=== PATIENT | female | born 1945 | race Caucasian/White ===

== ENCOUNTER 2019-05-20 12:39 | Day surgery (SDC) | payer OTHER ==
[~2019-05-20] VITALS: Ht 167.6 cm; Wt 110.8 kg
[~2019-05-20 12:39] MED LIST: AMIT50 PO; AMLO10 PO; CALCIUM CIT 311 EACH PO; GLUCOSAMINE CO1 EACH PO; LUTEIN20 MG PO; MEGA MULTI FOR1 EACH PO; NIGHTTIME SLEEP25 MG PO; Red Yeast Rice600 MG PO; VITAMIN B122500 MCG PO; Vitamin D2000 UNIT PO
--- NOTE | 2019-05-20 13:35 | NUR ---
Ambulatory in Day Surgery History, Chart, Medications and Allergies reviewed before start of procedure.Lungs clear T/O to Auscultation. Patient confirms NPO status and agrees with scheduled surgery. Patient reports completing Chlorhexadine shower X2 prior to admission to hospital.Surgical site prepped with 2% Chlorhexidine cloth wipe.
--- NOTE | 2019-05-20 18:25 | NUR ---
1814-PT HAVING RUNS OF [facility] EVERY THIRD BEAT. DR. CLARK NOTIFIED AND PT TO BE PUT ON TELE ON SURG FLOOR AND HAVE A HOSPITALIST CONSULT.
--- NOTE | 2019-05-20 18:53 | NUR ---
1824-MESSAGE LEFT FOR HOSPITALIST TO CONSULT.
[2019-05-20 22:28] LABS: Albumin, Blood 3.1 g/dL (3.4-5.0); Anion Gap 7 mmol/L (6-16); Blood Urea Nitrogen 15 mg/dL (8-24); CO2, Blood 25 mmol/L (21-32); Calcium, Blood 8.2 mg/dL (8.5-10.1); Chloride, Blood 109 mmol/L (98-108); Creatinine, Blood 0.84 mg/dL (0.40-1.00); Glomerular Filtration Rate >60 (60-); Glucose, Blood 185 mg/dL (70-99); Phosphorus, Blood 3.4 mg/dL (2.5-4.9); Potassium, Blood 3.1 mmol/L (3.5-5.5); Sodium, Blood 141 mmol/L (136-145)
[2019-05-21 04:08] LABS: BASOPHILS PERCENT AUTO 0 % (0-2); EOSINOPHILS PERCENT AUTO 0 % (0-6); Hematocrit 33.2 % (33.0-51.0); Hemoglobin 11.1 g/dL (11.5-16.0); IMMATURE GRAN ABSOLUTE AUTO 0.04 K/mm3 (0.00-0.10); IMMATURE GRAN PERCENT AUTO 0 % (0-1); LYMPHOCYTES ABSOLUTE AUTO 0.67 K/mm3 (0.84-5.20); LYMPHOCYTES PERCENT AUTO 7 % (21-46); MONOCYTES ABSOLUTE AUTO 0.43 K/mm3 (0.16-1.47); MONOCYTES PERCENT AUTO 5 % (4-13); Mean Corpuscular HGB 29.3 pg (26.0-34.0); Mean Corpuscular HGB Conc 33.4 g/dL (31.5-36.5); Mean Corpuscular Volume 88 fL (80-100); Mean Platelet Volume 10.1 fL (9.1-12.4); NEUTROPHILS ABSOLUTE AUTO 8.36 K/mm3 (1.96-9.15); NEUTROPHILS PERCENT AUTO 88 % (41-73); Platelet Count 285 K/mm3 (150-400); RDW Coefficient Variation 14.6 % (11.7-14.2); RDW Standard Deviation 46.7 fL (35.1-46.3); Red Blood Cell Count 3.79 M/mm3 (3.80-5.20)
--- NOTE | 2019-05-21 04:25 | NUR ---
SHIFT SUMMARY POD 1 L TKA [id number], VSS. SURGICAL DRESSING CDI. PT UP AND AMBULATING FWW, GB. TOLERATING WELL MEDICATED PER EMAR. PT MEDICATED PER EMAR FOR PAIN. PT VOIDING. TOLERATING PO WELL. PLAN TO WORK WITH THERAPY TODAY.
[2019-05-21 04:27] LABS: Anion Gap 7 mmol/L (6-16); Blood Urea Nitrogen 15 mg/dL (8-24); Bun/Creatinine Ratio 19.7 (12.0-20.0); CO2, Blood 24 mmol/L (21-32); Calcium, Blood 8.1 mg/dL (8.5-10.1); Chloride, Blood 108 mmol/L (98-108); Creatinine, Blood 0.76 mg/dL (0.40-1.00); Glomerular Filtration Rate >60 (60-); Glucose, Blood 136 mg/dL (70-99); Potassium, Blood 3.6 mmol/L (3.5-5.5); Sodium, Blood 139 mmol/L (136-145)
--- NOTE | 2019-05-21 08:01 | NUR ---
PATIENT AUTHORIZED STUDENT TO PROVIDE CARE TODAY.
[2019-05-21 10:27] LABS: Hematocrit 34.7 % (33.0-51.0); Hemoglobin 11.2 g/dL (11.5-16.0); Mean Corpuscular HGB 28.6 pg (26.0-34.0); Mean Corpuscular HGB Conc 32.3 g/dL (31.5-36.5); Mean Corpuscular Volume 89 fL (80-100); Mean Platelet Volume 10.5 fL (9.1-12.4); Platelet Count 281 K/mm3 (150-400); RDW Coefficient Variation 14.9 % (11.7-14.2); RDW Standard Deviation 47.8 fL (35.1-46.3); Red Blood Cell Count 3.92 M/mm3 (3.80-5.20); White Blood Cell Count 11.93 K/mm3 (4.00-11.30)
--- NOTE | 2019-05-21 11:07 | NUR ---
ECHOCARDIOGRAM COMPLETED
[2019-05-21] MEDS ORDERED: ACET500 PO (15:48)
[2019-05-21] MEDS ORDERED: ASPI325 PO (15:49)
[2019-05-21] MEDS ORDERED: METO25 PO (15:49)
[2019-05-21] MEDS ORDERED: ONDA4ODT MM (15:50)
[2019-05-21] MEDS ORDERED: BISA10S PR (15:51)
[2019-05-21] MEDS ORDERED: Bactrim Ds Tab1 EACH PO (15:51)
[2019-05-21] MEDS ORDERED: DOCU100 PO (15:52)
[2019-05-21] MEDS ORDERED: Florastor250 MG PO (15:52)
--- NOTE | 2019-05-21 16:37 | NUR ---
DISCHARGE: PACKET PRINTE AND PT EDUCATED. SENT WITH DRESSING, NEW MED FAXED TO [facility], SCRIPTS GIVEN PRE OP. PT LEFT UNIT VIA WHEELCHAIR AT ABOUT 1608 WITH TRE DAUGHERTY
== END 2019-05-21 16:00 | disposition home or self-care (01) ==
LOC: ORSCMMR 12:39 → SURS 12:39 → ORSCMMR 13:27 → ORD 14:15 → SURS 18:44 → ORSCMMR 05-21 16:00
PROVIDERS: Family Medicine; Internal Medicine; Orthopaedic Surgery
PROC: 0SRD0J9 Replacement of Left Knee Joint with Synthetic Substitute, Cemented, Open Approach (ICD-10-PCS; principal; 2019-05-20 14:15)
PROC: 8E0YXBZ Computer Assisted Procedure of Lower Extremity (ICD-10-PCS; principal; 2019-05-20 14:15)
DX: M17.12 Unilateral primary osteoarthritis, left knee (principal); I10 Essential (primary) hypertension; E78.5 Hyperlipidemia, unspecified; E66.01 Morbid (severe) obesity due to excess calories; Z68.39 Body mass index [BMI] 39.0-39.9, adult; Z87.891 Personal history of nicotine dependence; Z79.899 Other long term (current) drug therapy
CPT/HCPCS: 36415; 73560-LT; 80048; 80069; 83735; 84443; 85025; 85027; 88300; 93306; 97110; 97116; 97162; 97530; A9270-GY; C1713; C1776; J0171; J0690; J0735; J1100; J1885; J2250; J2370; J2405; J2704; J2795; J3010; J7120

== ENCOUNTER 2020-05-17 12:09 | Day surgery (SDC) | payer OTHER ==
[~2020-05-17] VITALS: Ht 172.7 cm; Wt 114.2 kg
[~2020-05-17 12:09] MED LIST changes: +ACET500 PO; +ASPI325 PO; +BISA10S PR; +Bactrim Ds Tab1 EACH PO; +DOCU100 PO; +Florastor250 MG PO; +IRBE150 PO; +METO25 PO; +OMEP20ER PO; +ONDA4ODT MM; +RED YEAST RICE PO; +VITAMIN D325 MC3 PO
--- NOTE | 2020-05-17 12:56 | NUR ---
05/17/20 1256 FLAVIO LUNA ONE ATTEMPT IN RH BY MAXINE VALVE ONE SUCCESSFUL BY MAXINE IN RH PT TOW
[2020-09-01] MEDS ORDERED: CYAN500 PO (15:30)
[2020-09-01] MEDS ORDERED: GINKGO60 MG PO (15:30)
[2020-09-01] MEDS ORDERED: MULVITA PO (15:32)
== END 2020-05-17 15:05 | disposition home or self-care (01) ==
LOC: ORSCSDS 12:09
PROVIDERS: Surgery
PROC: 0DJD8ZZ Inspection of Lower Intestinal Tract, Via Natural or Artificial Opening Endoscopic (ICD-10-PCS; principal; 2020-05-17 13:30)
DX: Z12.11 Encounter for screening for malignant neoplasm of colon (principal); I10 Essential (primary) hypertension; E78.5 Hyperlipidemia, unspecified
CPT/HCPCS: J2405; J2704; J7120

== ENCOUNTER 2020-09-05 08:58 | Day surgery (SDC) | payer OTHER ==
[~2020-09-05 08:58] MED LIST changes: +CYAN500 PO; +GINKGO60 MG PO; +MULVITA PO
== END 2020-09-05 23:37 | disposition home or self-care (01) ==
LOC: MOI US 08:58
DX: C50.812 Malignant neoplasm of overlapping sites of left female breast (principal)
CPT/HCPCS: 19285; 77065; A4648; G0279

== ENCOUNTER 2020-09-08 09:31 | Day surgery (SDC) | payer OTHER ==
[~2020-09-08] VITALS: Ht 172.7 cm; Wt 121.0 kg
--- NOTE | 2020-09-08 11:02 | NUR ---
Ambulatory in Day Surgery History, Chart, Medications and Allergies reviewed before start of procedure. Lungs clear T/O to Auscultation. Patient confirms NPO status and agrees with scheduled surgery. Pre-Op teaching done. Pt verbalizes understanding. Patient States Post-Procedure ride home has been arranged.
--- NOTE | 2020-09-08 14:08 | NUR ---
ASSUMED CARE OF PATIENT. PT WITH BREAST BINDER AND DRESSING X 2 TO LEFT BREAST DRY AND INTACT. PT REPORTS PAIN 2/10 AT THIS TIME. PT GIVEN WATER AND CRACKERS TO EAT AT THIS TIME.
--- NOTE | 2020-09-08 14:16 | NUR ---
REPORT TO SURINDER JENNINGS
--- NOTE | 2020-09-08 14:54 | NUR ---
Patient up to Ambulate independently. Gait steady. Discharge instructions reviewed with patient. Patient verbalizes understanding. Copy given to patient to take home. Discharged via wheelchair to private car for ride home WITH SON.
== END 2020-09-08 23:13 | disposition home or self-care (01) ==
LOC: NM 09:31 → ORSCMMR 09:31 → NM 10:30 → ORSCMMR 23:13 → NM 23:13
PROVIDERS: Surgery
PROC: 0HBU0ZZ Excision of Left Breast, Open Approach (ICD-10-PCS; principal; 2020-09-08 11:30)
DX: C50.812 Malignant neoplasm of overlapping sites of left female breast (principal); E78.5 Hyperlipidemia, unspecified; I10 Essential (primary) hypertension; Z87.891 Personal history of nicotine dependence
CPT/HCPCS: 38792; 76098; 88307; 88341; 88342; A9270; A9520; J0690; J1100; J2250; J2370; J2405; J2704; J3010; J7120; Q9968

== ENCOUNTER 2021-09-26 13:18 | Emergency (ER) | payer OTHER ==
[~2021-09-26] VITALS: Ht 172.7 cm; Wt 113.4 kg
[2021-09-26 16:42] LABS: Source, Urine Voided
[2021-09-26 17:03] LABS: Appearance, Urine Clear (Clear); Bilirubin, Urine Neg (Neg); Blood, Urine Neg (Neg); Color, Urine Yellow (P-Yellow); Glucose Qualitative, Urine Neg (Neg); Ketones, Urine 2+ (Neg); Leukocyte Esterase, Urine Neg (Neg); Nitrite, Urine Neg (Neg); Protein, Urine Neg (Neg); Urobilinogen, Urine NORM (Normal)
[2021-09-26] MEDS ORDERED: IBUP800 PO (17:06)
[2021-09-26] MEDS ORDERED: HYDR1TAB94 PO (17:06)
== END 2021-09-26 19:42 | disposition home or self-care (01) ==
LOC: ER 13:18
PROVIDERS: Emergency Medicine
DX: M54.50 Low back pain, unspecified (principal); I10 Essential (primary) hypertension; Z87.891 Personal history of nicotine dependence; Z79.899 Other long term (current) drug therapy; Z91.09 Other allergy status, other than to drugs and biological substances
CPT/HCPCS: 72100; 81003; A9270

== ENCOUNTER 2022-02-12 11:05 | Day surgery (SDC) | payer OTHER ==
[~2022-02-12] VITALS: Ht 172.7 cm; Wt 115.9 kg
[~2022-02-12 11:05] MED LIST changes: +HYDR1TAB94 PO; +IBUP800 PO
[2022-02-12] MEDS ORDERED: MELO7.5 (11:45)
[2022-02-12] MEDS ORDERED: ANASTROZOLE1 M7 PO (11:46)
[2022-02-12] MEDS ORDERED: CYCL10 PO (11:46)
--- NOTE | 2022-02-12 13:02 | NUR ---
02/12/22 1302 Galdino Harmon ROPIVACAINE 0.5% 30 MLS MIXFED W/ EPI 0.15ML (1MG/ML) PER ODER TO MAKE ROPIVACAINE 0.5% 1[facility]200,[facility]
== END 2022-02-12 15:49 | disposition home or self-care (01) ==
LOC: ORSCSDS 11:05
PROVIDERS: Podiatrist Foot & Ankle Surgery
PROC: 0QSQ04Z Reposition Right Toe Phalanx with Internal Fixation Device, Open Approach (ICD-10-PCS; principal; 2022-02-12 12:30)
PROC: 0SGH04Z Fusion of Right Tarsal Joint with Internal Fixation Device, Open Approach (ICD-10-PCS; principal; 2022-02-12 12:30)
DX: M20.11 Hallux valgus (acquired), right foot (principal); I10 Essential (primary) hypertension; Z87.891 Personal history of nicotine dependence; K21.9 Gastro-esophageal reflux disease without esophagitis; E66.9 Obesity, unspecified; Z68.38 Body mass index [BMI] 38.0-38.9, adult; Z79.899 Other long term (current) drug therapy
CPT/HCPCS: C1713; J0171; J0690; J1100; J2370; J2405; J2704; J2795; J3010

== ENCOUNTER → 2022-10-15 | Outpatient (CLI) | payer OTHER ==
[~2022-10-15] MED LIST changes: +ANASTROZOLE1 M7 PO; +CYCL10 PO; +MELO7.5
== END ==
LOC: PLD 14:37 → LAB 14:37 → LAB SHORT 14:37
DX: L57.0 Actinic keratosis (principal)
CPT/HCPCS: 88305